=== PATIENT | female | born 1985 | race Caucasian/White ===

== ENCOUNTER 2021-09-30 09:38 | Inpatient (IN) ==
[2021-09-30] MEDS ORDERED: SODIUM CHLORIDE 0.9% 1000ML 2,000 ML IV ONE (09:52)
--- NOTE | 2021-09-30 10:14 | XRay Report ---
SINGLE VIEW CHEST CLINICAL HISTORY: Sepsis. FINDINGS: An AP, portable, upright chest radiograph is obtained. No prior studies are available for c omparison at the time of dictation. The cardiomediastinal silhouette is unremarkable. The lungs and p leural spaces are clear. No pneumothorax is seen. The bony thorax is grossly intact. IMPRESSION: No active disease in the chest. ACT 112: Negative or not required by law. Electronically signed by: Jayden Maurice M.D. 09/30/2021 10:13 AM
[2021-09-30] MEDS ORDERED: cefTRIAXone SODIUM 2,000 MG/70 ML BAG IV STA (10:19)
[2021-09-30 10:28] LABS: Basophils # (auto) 0.03 K/uL (0-0.2); Basophils % (auto) 0.2 %; Hematocrit (blood only) 35.1 % (34.1-44.9); Immature Granulocytes # (auto) 0.13 K/uL (0.00-0.02); Immature Granulocytes % (auto) 0.9 %; Lymphocytes # (auto) 0.96 K/uL (1.2-3.4); Mean Corpuscular Hemoglobin 29.3 pg (25.0-34.0); Mean Corpuscular Hgb Conc 34.2 g/dL (32.0-36.0); Mean Corpuscular Volume 85.8 fL (80.0-100.0); Mean Platelet Volume 9.1 fL (9.4-12.3); Monocytes # (auto) 0.98 K/uL (0.24-0.82); Monocytes % (auto) 7.2 %; Neutrophils % (auto) 84.7 %; Platelet Count 151 K/uL (130-400); RDW Coefficient of Variation 13.3 % (11.5-14.5); Red Blood Count 4.09 M/uL (3.93-5.22)
--- NOTE | 2021-09-30 10:46 | CT Scan Report ---
CT SCAN OF THE ABDOMEN AND PELVIS WITHOUT IV CONTRAST CLINICAL HISTORY: Fever. Left flank and left lower quadrant pain. COMPARISON STUDY: No priors. TECHNIQUE: CT scan of the abdomen and pelvis is performed from the lung bases to the proximal femora. Images are reviewed in the axial, sagittal, and coronal planes. IV contrast was not administered for this examination. Note that the examination was performed in suboptimal fashion without oral and IV contrast. A dose lowering technique was utilized adhering to the principles of ALARA. CT DOSE: 292.02 mGy.cm FINDINGS: Lung bases: The heart is normal in size and without pericardial effusion. The lung bases are clear. Liver: The unenhanced liver is normal in size, contour, and attenuation. There is no intrahepatic yaron iary ductal dilatation. Gallbladder: Unremarkable. Spleen: The spleen is enlarged measuring 14.5 cm in length. Pancreas: Unremarkable. Adrenal glands: Unremarkable. Kidneys: The unenhanced kidneys are normal in size and without hydronephrosis. There are no renal crystal culi identified. There is no evidence of contour deforming renal mass lesion. Urothelial thickening i s noted in the left renal pelvis and the left ureter. There is left-sided perinephric stranding and f luid. Results urothelial thickening of the right ureter. There is no right-sided perinephric strandin g. Abdominal vasculature: The abdominal aorta is normal in course and caliber. Bowel: The small bowel and colon are normal in course and caliber. The appendix is well-visualized a nd normal. Peritoneum: There is no intraperitoneal free air or abdominal ascites. There is a fat-containing umbi lical hernia. Lymphadenopathy: None. Pelvic viscera: The bladder is distended but otherwise normal in appearance. The uterus is normal as visualized. There are bilateral ovarian follicles. A dominant follicle in the left ovary measures up to 2.4 cm. There is a moderate volume of free fluid in the cul-de-sac. Skeletal structures: No lytic or blastic lesions are seen. IMPRESSION: 1. There is urothelial thickening involving the left renal pelvis and the left ureter with associated left-sided perinephric stranding and fluid. No renal calculi are identified. Given the history of fe rory this likely represents ascending urinary tract infection/left-sided pyelonephritis. The sequelae of a recently passed kidney stone could appear similar but is considered less likely. Correlate with clinical findings and urinalysis. 2. Urothelial thickening is also seen in the right ureter. 3. Nonspecific free fluid in the cul-de-sac is likely within physiologic limits. 4. Splenomegaly. 5. Additional findings as above. ACT 112: Negative or not required by law. Electronically signed by: Jayden Maurice M.D. 09/30/2021 10:44 AM
[2021-09-30 10:55] LABS: Albumin Globulin Ratio 1.3 (0.9-2); Albumin Level 3.8 gm/dl (3.4-5.0); BUN Creatinine Ratio 14.8 (10-20); Bilirubin,Total 1.5 mg/dl (0.2-1.0); Calcium 8.9 mg/dl (8.5-10.1); Creatinine Clr Calc Pharmacy 60.9 ml/min; Est GFR (African American) 98.7 ml/min; Est GFR (Non-African American) 85.1 ml/min; Potassium 3.5 mmol/L (3.5-5.1); Total Protein 6.8 gm/dl (6.0-8.3)
[2021-09-30 10:56] LABS: INR 1.1 (0.9-1.1); Partial Thromboplastin Ratio 1.2; Partial Thromboplastin Time 33.9 Seconds (21.0-31.0); Prothrombin Time 11.9 Seconds (9.0-12.0)
[2021-09-30 11:10] LABS: Appearance Urine Cloudy (Clear); Bacteria Urine Automated 2+ (Negative); Bilirubin Urine Negative (Negative); Blood Urine 1+ (Negative); Color Urine Yellow; Epithelial Cell Urine Auto >30 /lpf (0-5); Glucose Urine UA Negative (Negative); Ketones Urine 1+ (Negative); Leukocyte Esterase Urine 3+ (Negative); Nitrite Urine Negative (Negative); Protein Urine Trace (Negative); RBC Urine Automated 0-4 /hpf (0-4); Specific Gravity Urine 1.004 (1.000-1.030); Urobilinogen Urine Negative (Negative); WBC Urine Automated >30 /hpf (0-5)
[2021-09-30] MEDS ORDERED: KETOROLAC TROMETHAMINE 15 MG/ML VIAL IV STA (11:46)
--- NOTE | 2021-09-30 12:06 | Emergency Department Note ---
History of Present Illness General Chief Complaint: Urinary Symptoms Stated Complaint: UTI Time Seen by Provider: 09/30/21 09:52 History of Present Illness Provider Complaint: flank pain (L) Onset (ago): 5 day(s) Pain Consistency: constant Location: L flank Radiation: LLQ Severity: moderate Maximum Pain Intensity: 8 Current Pain Intensity: 8 Quality: + stabbing and + sharp Relieved By: + nothing Exacerbated By: + nothing Context: no foreign travel, no possible food poisoning, no sick contacts, no recent surgery/procedure, no recent injury or no history of similar episodes Associated Symptoms: + nausea, + vomiting, + fever, + chills and + dysuria; no diarrhea, no constipation, no melena, no anorexia, no syncope, no headache, no neck pain, no chest pain, no weakness and no breathing difficulty Patient reports that she was diagnosed with a UTI at [facility] but there was a problem with her prescription at the pharmacy and she could not start taking the antibiotic that was prescribed to her. Related Data Patient Confirmed : No Past Med/Surg History Medical History (Updated 09/30/21 @ 12:15 by Lizandro Devries) Anxiety Migraine Surgical History No pertinent past surgical history Family History (Updated 09/30/21 @ 12:11 by Kayley Villeda PA-C) Other Family history unknown Social History Smoking Status: Never smoker Feels Safe at Home: Yes Review of Systems A total of 10 systems reviewed and were otherwise negative Physical Exam Vital Signs: Vital Signs - 24 hr 09/30/21 09:46 09/30/21 10:07 09/30/21 10:07 Temperature 37.2 C Temperature Source Temporal Artery Sc an Pulse Rate 108 H Pulse Rate [Finger ] 96 H Pulse Rhythm Pulse Rhythm [Fing er] Regular Pulse Strength [Fi nger] Normal Respiratory Rate 18 20 20 Respiratory Effort / Characteristics Non-Labored Non-Labored Non-Labored Sponta neous Respiratory Depth Normal Normal Respiratory Patter n Regular Blood Pressure 92/60 L Blood Pressure [Le ft Arm] 97/59 L Blood Pressure Danette n 70 Blood Pressure Danette n [Left Arm] 71 Blood Pressure Pos ition [Left Arm] Lying Pulse Oximetry 97 100 100 Oxygen Delivery Me thod Room Air Room Air Room Air Sepsis Recent Feve r Within 48 Hours No Sepsis New/Unexpla ined Change in Men jarad Status No Sepsis Action Take n by Nursing No Action Required 09/30/21 10:07 09/30/21 10:30 09/30/21 11:00 Temperature Temperature Source Pulse Rate 90 Pulse Rate [Finger ] Pulse Rhythm Regular Pulse Rhythm [Fing er] Pulse Strength [Fi nger] Respiratory Rate 20 20 Respiratory Effort / Characteristics Non-Labored Non-Labored Respiratory Depth Respiratory Patter n Blood Pressure Blood Pressure [Le ft Arm] Blood Pressure Danette n Blood Pressure Danette n [Left Arm] Blood Pressure Pos ition [Left Arm] Pulse Oximetry 100 100 100 Oxygen Delivery Me thod Room Air Room Air Room Air Sepsis Recent Feve r Within 48 Hours Sepsis New/Unexpla ined Change in Men jarad Status Sepsis Action Take n by Nursing 09/30/21 11:00 09/30/21 11:30 Temperature Temperature Source Pulse Rate Pulse Rate [Finger ] 90 Pulse Rhythm Pulse Rhythm [Fing er] Regular Pulse Strength [Fi nger] Normal Respiratory Rate 20 20 Respiratory Effort / Characteristics Non-Labored Non-Labored Respiratory Depth Normal Respiratory Patter n Blood Pressure Blood Pressure [Le ft Arm] 94/60 L Blood Pressure Danette n Blood Pressure Danette n [Left Arm] 71 Blood Pressure Pos ition [Left Arm] Lying Pulse Oximetry 100 100 Oxygen Delivery Me thod Room Air Room Air Sepsis Recent Feve r Within 48 Hours Sepsis New/Unexpla ined Change in Men jarad Status Sepsis Action Take n by Nursing Physical Exam: Physical Exam GENERAL: She is oriented to person, place, and time. She appears well-developed and well-nourished. She does not appear distressed. HENT: Exam performed. -Head: Normocephalic and atraumatic. -Right Ear: External ear normal. No mastoid tenderness. -Left Ear: External ear normal. No mastoid tenderness. -Mouth/Throat: The oropharynx is clear and moist. No trismus in the jaw. No dental abscesses or uvula swelling. No oropharyngeal exudate or tonsillar abscesses. EYES: Conjunctivae and EOM are normal. Pupils are equal, round, and reactive to light. Right eye exhibits no discharge. Left eye exhibits no discharge. No scleral icterus. NECK: Normal range of motion. Neck supple. No JVD present. No spinous process tenderness present. No carotid bruit present. No rigidity. No tracheal deviation and normal range of motion present. No Brudzinski's sign and no Kernig's sign noted. CV: Normal rate, regular rhythm, normal heart sounds and intact distal pulses. There is no peripheral edema. Palpable radial pulses bue. PULM/CHEST: Effort normal and breath sounds normal. No respiratory distress. No stridor. She has no wheezes. She has no rales. -Chest Wall: She exhibits no tenderness. ABD: The abdomen is soft. Bowel sounds are normal. She has no distension. No mass is present. There is tenderness to palpation of the left lower quadrant. There is no rebound, no guarding, no Pruitt's sign and no tenderness at McBurney's point. Rovsig negative. Left-sided CVA tenderness present. MUSC/SKEL: Normal range of motion. There is no peripheral edema, tenderness or deformity. LYMPH: No cervical adenopathy. NEURO: She is alert and oriented to person, place, and time. She has normal strength. No cranial nerve deficit or sensory deficit. Coordination and gait normal. GCS eye subscore is 4. GCS verbal subscore is 5. GCS motor subscore is 6. Cerebellar tests wnl. SKIN: Skin is warm and dry. She is not diaphoretic. PSYCH: She has a normal mood and affect. Behavior is normal. Judgment and thought content normal. Course Course 0952: The patient was evaluated in room B10. A complete history and physical exam was performed Cardiac monitoring: An order was placed for continuous cardiac monitoring. The monitor shows a rate of 110 with sinus rhythm Patient has paperwork with her from [facility] and earlier today the patient had a temperature of 102.1 was tachycardic at 114 and had a blood pressure of 88/50 and was referred to the emergency department for these findings. The paperwork there also shows that the patient had a urine culture from September 29, 2021 which showed greater than 100,000 colonies of lactose fermenting gram-negative bacilli. Sepsis protocols will be initiated and the patient will be treated with antibiotics to cover the organism on the urine culture. 1150: Patient remains hypotensive in the emergency department. Labs show leukocytosis of 13.7. Lactic acid within normal limits. Urinalysis does appear infected. Patient CT shows pyelonephritis. Patient will be admitted to the [facility] hospitalist team Dr. Rios team notified. Administered Medications Discontinued Medications Sodium Chloride (Nss 1000ml) 2,000 mls @ 999 mls/hr IV .Q2H1M ONE Stop: 09/30/21 11:52 Last Admin: 09/30/21 10:03 Dose: 999 mls/hr Documented By: DEL Ceftriaxone Sodium (Rocephin) 2,000 mg in 70 mls @ 140 mls/hr IV NOW STA Stop: 09/30/21 10:48 Last Infusion: 09/30/21 11:33 Dose: 0 mls/hr Documented By: Admin: 09/30/21 11:02 Dose: 140 mls/hr Documented By: DEL Ketorolac Tromethamine (Ketorolac Tromethamine 15 Mg/Ml Vial) 15 mg IV NOW STA Stop: 09/30/21 11:47 Last Admin: 09/30/21 11:52 Dose: 15 mg Documented By: DEL Medical Decision Making Laboratory Data Result diagrams: 09/30/21 10:00 09/30/21 10:00 Lab Results 09/30/21 09/30/21 09/30/21 Range/Units 10:00 10:00 10:00 WBC 13.70 H (4.8-10.8) K/ul RBC 4.09 (3.93-5.22) M/uL Hgb 12.0 (12.0-16.0) g/dl Hct 35.1 (34.1-44.9) % MCV 85.8 (80.0-100.0) fL MCH 29.3 (25.0-34.0) pg MCHC 34.2 (32.0-36.0) g/dL RDW Std Deviation 42.0 (36.4-46.3) fL RDW Coeff of Alina 13.3 (11.5-14.5) % Plt Count 151 (130-400) K/uL MPV 9.1 L (9.4-12.3) fL Immature Gran % (Auto) 0.9 % Neut % (Auto) 84.7 % Lymph % (Auto) 7.0 % [place] % (Auto) 7.2 % Eos % (Auto) 0.0 % Baso % (Auto) 0.2 % Neut # (Auto) 11.60 H (1.4-6.5) K/uL Lymph # (Auto) 0.96 L (1.2-3.4) K/uL [place] # (Auto) 0.98 H (0.24-0.82) K/uL Eos # (Auto) 0.00 (0-0.50) K/uL Baso # (Auto) 0.03 (0-0.2) K/uL Immature Gran # (Auto) 0.13 H (0.00-0.02) K/uL PT 11.9 (9.0-12.0) Seconds INR 1.1 (0.9-1.1) APTT 33.9 H (21.0-31.0) Seconds PTT Ratio 1.2 Sodium 130 L (136-145) mmol/L Potassium 3.5 (3.5-5.1) mmol/L Chloride 98 (98-107) mmol/L Carbon Dioxide 22 (21-32) mmol/L Anion Gap 10 (3-11) BUN 13 (6-23) mg/dl Creatinine 0.88 (0.6-1.2) mg/dl Est Cr Clr Drug Dosing 60.9 ml/min Est GFR ( Amer) 98.7 ml/min Est GFR (Non-Af Amer) 85.1 ml/min BUN/Creatinine Ratio 14.8 (10-20) Glucose 118 H (70-99(Fasting)) mg/dl Lactate (0.4-2.0) mmol/L Calcium 8.9 (8.5-10.1) mg/dl Magnesium 2.0 (1.7-2.4) mg/dl Total Bilirubin 1.5 H (0.2-1.0) mg/dl AST 12 L (13-39) U/L ALT 14 (7-52) U/L Alkaline Phosphatase 57 (34-104) U/L Total Protein 6.8 (6.0-8.3) gm/dl Albumin 3.8 (3.4-5.0) gm/dl Globulin 3.0 (2.5-4.0) gm/dl Albumin/Globulin Ratio 1.3 (0.9-2) Urine Color Urine Appearance (Clear) Urine pH (4.5-7.5) Ur Specific Nettie (1.000-1.030) Urine Protein (Negative) Urine Glucose (UA) (Negative) Urine Ketones (Negative) Urine Blood (Negative) Urine Nitrite (Negative) Urine Bilirubin (Negative) Urine Urobilinogen (Negative) Ur Leukocyte Esterase (Negative) Urine WBC (Auto) (0-5) /hpf Urine RBC (Auto) (0-4) /hpf U Hyaline Cast (Auto) (0-5) /lpf U Epithel Cells (Auto) (0-5) /lpf Urine Bacteria (Auto) (Negative) POC Ur Test (NEG) 09/30/21 09/30/21 09/30/21 Range/Units 10:50 10:50 10:53 WBC (4.8-10.8) K/ul RBC (3.93-5.22) M/uL Hgb (12.0-16.0) g/dl Hct (34.1-44.9) % MCV (80.0-100.0) fL MCH (25.0-34.0) pg MCHC (32.0-36.0) g/dL RDW Std Deviation (36.4-46.3) fL RDW Coeff of Alina (11.5-14.5) % Plt Count (130-400) K/uL MPV (9.4-12.3) fL Immature Gran % (Auto) % Neut % (Auto) % Lymph % (Auto) % [place] % (Auto) % Eos % (Auto) % Baso % (Auto) % Neut # (Auto) (1.4-6.5) K/uL Lymph # (Auto) (1.2-3.4) K/uL [place] # (Auto) (0.24-0.82) K/uL Eos # (Auto) (0-0.50) K/uL Baso # (Auto) (0-0.2) K/uL Immature Gran # (Auto) (0.00-0.02) K/uL PT (9.0-12.0) Seconds INR (0.9-1.1) APTT (21.0-31.0) Seconds PTT Ratio Sodium (136-145) mmol/L Potassium (3.5-5.1) mmol/L Chloride (98-107) mmol/L Carbon Dioxide (21-32) mmol/L Anion Gap (3-11) BUN (6-23) mg/dl Creatinine (0.6-1.2) mg/dl Est Cr Clr Drug Dosing ml/min Est GFR ( Amer) ml/min Est GFR (Non-Af Amer) ml/min BUN/Creatinine Ratio (10-20) Glucose (70-99(Fasting)) mg/dl Lactate 1.4 (0.4-2.0) mmol/L Calcium (8.5-10.1) mg/dl Magnesium (1.7-2.4) mg/dl Total Bilirubin (0.2-1.0) mg/dl AST (13-39) U/L ALT (7-52) U/L Alkaline Phosphatase (34-104) U/L Total Protein (6.0-8.3) gm/dl Albumin (3.4-5.0) gm/dl Globulin (2.5-4.0) gm/dl Albumin/Globulin Ratio (0.9-2) Urine Color Yellow Urine Appearance Cloudy A (Clear) Urine pH 6.0 (4.5-7.5) Ur Specific Nettie 1.004 (1.000-1.030) Urine Protein Trace H (Negative) Urine Glucose (UA) Negative (Negative) Urine Ketones 1+ H (Negative) Urine Blood 1+ H (Negative) Urine Nitrite Negative (Negative) Urine Bilirubin Negative (Negative) Urine Urobilinogen Negative (Negative) Ur Leukocyte Esterase 3+ H (Negative) Urine WBC (Auto) >30 H (0-5) /hpf Urine RBC (Auto) 0-4 (0-4) /hpf U Hyaline Cast (Auto) 1-5 (0-5) /lpf U Epithel Cells (Auto) >30 H (0-5) /lpf Urine Bacteria (Auto) 2+ H (Negative) POC Ur Test NEG (NEG) Imaging Data Radiologist's Impression: Chest X-Ray 09/30/21 09:52 SINGLE VIEW CHEST CLINICAL HISTORY: Sepsis. FINDINGS: An AP, portable, upright chest radiograph is obtained. No prior studies are available for comparison at the time of dictation. The cardiomediastinal silhouette is unremarkable. The lungs and pleural spaces are clear. No pneumothorax is seen. The bony thorax is grossly intact. IMPRESSION: No active disease in the chest. ACT 112: Negative or not required by law. Electronically signed by: Jayden Maurice M.D. 09/30/2021 10:13 AM Abdomen/Pelvis CT 09/30/21 10:02 CT SCAN OF THE ABDOMEN AND PELVIS WITHOUT IV CONTRAST CLINICAL HISTORY: Fever. Left flank and left lower quadrant pain. COMPARISON STUDY: No priors. TECHNIQUE: CT scan of the abdomen and pelvis is performed from the lung bases to the proximal femora. Images are reviewed in the axial, sagittal, and coronal planes. IV contrast was not administered for this examination. Note that the examination was performed in suboptimal fashion without oral and IV contrast. A dose lowering technique was utilized adhering to the principles of ALARA. CT DOSE: 292.02 mGy.cm FINDINGS: Lung bases: The heart is normal in size and without pericardial effusion. The lung bases are clear. Liver: The unenhanced liver is normal in size, contour, and attenuation. There is no intrahepatic biliary ductal dilatation. Gallbladder: Unremarkable. Spleen: The spleen is enlarged measuring 14.5 cm in length. Pancreas: Unremarkable. Adrenal glands: Unremarkable. Kidneys: The unenhanced kidneys are normal in size and without hydronephrosis. There are no renal calculi identified. There is no evidence of contour deforming renal mass lesion. Urothelial thickening is noted in the left renal pelvis and the left ureter. There is left-sided perinephric stranding and fluid. Results urothelial thickening of the right ureter. There is no right-sided perinephric stranding. Abdominal vasculature: The abdominal aorta is normal in course and caliber. Bowel: The small bowel and colon are normal in course and caliber. The appendix is well-visualized and normal. Peritoneum: There is no intraperitoneal free air or abdominal ascites. There is a fat-containing umbilical hernia. Lymphadenopathy: None. Pelvic viscera: The bladder is distended but otherwise normal in appearance. The uterus is normal as visualized. There are bilateral ovarian follicles. A dominant follicle in the left ovary measures up to 2.4 cm. There is a moderate volume of free fluid in the cul-de-sac. Skeletal structures: No lytic or blastic lesions are seen. IMPRESSION: 1. There is urothelial thickening involving the left renal pelvis and the left ureter with associated left-sided perinephric stranding and fluid. No renal calculi are identified. Given the history of fever this likely represents ascending urinary tract infection/left-sided pyelonephritis. The sequelae of a recently passed kidney stone could appear similar but is considered less likely. Correlate with clinical findings and urinalysis. 2. Urothelial thickening is also seen in the right ureter. 3. Nonspecific free fluid in the cul-de-sac is likely within physiologic limits. 4. Splenomegaly. 5. Additional findings as above. ACT 112: Negative or not required by law. Electronically signed by: Jayden Maurice M.D. 09/30/2021 10:44 AM ECG Data Indication: other (sepsis) Rate (beats per minute): 84 Rhythm: normal sinus Findings: no ST depression, no ST elevation or no prolonged QT MDM Narrative 0952: The patient was evaluated in room B10. A complete history and physical exam was performed Cardiac monitoring: An order was placed for continuous cardiac monitoring. The monitor shows a rate of 110 with sinus rhythm Patient [facility] paperwork with her [facility] and earlier today the patient had a temperature of 102.1 was tachycardic at 114 and had a blood pressure of 88/50 and was referred to the emergency department for these findings. The paperwork there also shows that the patient had a urine culture from September 29, 2021 which showed greater than 100,000 colonies of lactose fermenting gram-negative kerwin illi. Sepsis protocols will be initiated and the patient will be treated with antibiotics to cover the organism on the urine culture. 1150: Patient remains hypotensive in the emergency department. Labs show leukocytosis of 13.7. Lactic acid within normal limits. Urinalysis does appear infected. Patient CT shows pyelonephritis. Patient [facility] be [facility] to the [facility] Hospitalist team Dr. Rios team notified. Impression & Plan Pyelonephritis Discharge Plan Visit Data Chief Complaint: Urinary Symptoms Stated Complaint: UTI ED Provider: Lizandro Devries Discharge Problem: Pyelonephritis Patient Disposition: Admitted As Inpatient Forms Stand Alone Forms: My [facility] Referrals Referrals: Addis Palumbo MD [Primary Care Provider] -
--- NOTE | 2021-09-30 12:09 | History & Physical Report ---
Date of Service September 30, 2021 Assessment & Plan (1) Pyelonephritis: Plan: Possible passed kidney stone Patient is 36-year-old female with PMH anxiety, depression, migraine presented to ER with complaint of dysuria, urinary frequency x 4 days. 3 days ago with suprapubic pain, left back and left flank pain, fever, chills. 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 Outpatient 09/28/2021 urine culture +E. coli, resistant to ampicillin, cefazolin, ceftriaxone, Cipro In ER patient afebrile, initial P: 108 down to 98, BP 94/60, 97% on room air. WBC: 13.7, lactate WNL. UA. Consistent with UTI CT ABD/PELVIS: There is urothelial thickening involving the left renal pelvis and the left ureter with associated left-sided perinephric stranding and fluid. No renal calculi are identified. Given the history of fever this likely represen ts ascending urinary tract infection/left-sided pyelonephritis. The sequelae of a recently passed kidney stone could appear similar but is considered less likely. Urothelial thickening is also seen in the right ureter. Repeat urine culture pending Blood cultures pending In ER given Rocephin, Toradol, 2L NSS We will start cefepime secondary to outpatient urine culture results showing resistant to multiple agents, was sensitive to cefepime IVF Toradol as needed CBC, BMP in a.m. (2) Hyponatremia: Plan: Na: 130 Monitor (3) Migraine: Plan: No current migraine Continue topiramate (4) Anxiety: Plan: Continue bupropion DVT Prophylaxis SCDs Full Code as per discussion with pt Follows with Dr Jere Renner for routine care Pt was seen and care coordinated with Dr Linder. See addendum History of Present Illness Chief Complaint: Urinary symptoms Primary Care Provider: Addis Palumbo MD Patient is 36-year-old female with PMH anxiety, depression, migraine presented to ER with complaint of urinary symptoms x 4 days. 09/26/21 started with dysuria, urinary frequency. Following day started with suprapubic pain, left back and left flank pain. Has decreased appetite and oral intake and nausea without vomiting. 2 days ago started with chills and fever 100.1F. Patient called into to outpatient clinic with UTI symptoms 09/27/2021 and Cipro prescription was sent however patient was unable to pick this up. Using Tylenol, Motrin with minimal relief. Outpatient records reviewed. Outpatient 09/28/2021 urine culture +E. coli, resistant to ampicillin, cefazolin, ceftriaxone, Cipro. Also complains bilateral ear pressure. Reports seasonal allergies. Denies diaphoresis, V/D/C, PHILLIP, dizziness, syncope, vision changes, CP, SOB, orthopnea, palpitations, cough, sore throat, choking, otalgia, rhinorrhea, paresthesias, weakness, extremity weakness, extremity edema, rashes, hematuria. Denies history kidney stones. Allergies Allergy/AdvReac Type Severity Reaction Status Date / Time No Known Allergies Allergy Unverified 09/30/21 12:38 Home Medications Medication Instructions Recorded Confirmed Type bupropion HCl 150 mg 24 hr tablet, 150 mg PO DAILY 09/30/21 09/30/21 History extended release norethindrone (contraceptive) 0.35 0.35 mg PO DAILY 09/30/21 09/30/21 History mg tablet sumatriptan succinate 25 mg tablet 25 mg PO Q2H PRN Migraine Headache 09/30/21 09/30/21 History topiramate 50 mg tablet 50 mg PO DAILY 09/30/21 09/30/21 History Past Med/Surg History Medical History Anxiety Migraine Surgical History No pertinent past surgical history Family History Other Family history unknown Social History Smoking Status: Never smoker Hx Alcohol Use: No Hx Substance Use: No Feels Safe at Home: Yes Review of Systems Review of Systems: All systems reviewed & are unremarkable except as noted in HPI & below Physical Exam Physical Exam: General: no acute distress, appears ill, WDWN Head: normocephalic, atraumatic Eyes: conjunctiva non-injected, anicteric ENT: normal inspection external ears, nose, mucous membranes dry Neck: supple, trachea midline Lungs: clear, no respiratory distress, no wheezing/rhonchi/rales CV: RRR, no murmur, no pretibial edema Abd: normal BS, soft, + tenderness suprapubic, left flank Ext: no cyanosis, no calf tenderness Neuro: A&O x 3, no focal deficits noted, normal affect Skin: warm, dry Results & Data Results & Data ([facility]) Vital Signs (Past 12 Hours) Vital Signs Temp Pulse Pulse Resp BP BP Pulse Ox 09/30/21 11:30 20 100 09/30/21 11:00 90 20 94/60 L 100 09/30/21 11:00 20 100 09/30/21 10:30 100 09/30/21 10:07 90 20 100 09/30/21 10:07 20 100 09/30/21 10:07 96 H 20 97/59 L 100 09/30/21 09:46 37.2 C 108 H 18 92/60 L 97 O2 Del Method 09/30/21 11:30 Room Air 09/30/21 11:00 Room Air 09/30/21 11:00 Room Air 09/30/21 10:30 Room Air 09/30/21 10:07 Room Air 09/30/21 10:07 Room Air 09/30/21 10:07 Room Air 09/30/21 09:46 Room Air Laboratory Results Short CBC 09/30/21 Range/Units 10:00 WBC 13.70 H (4.8-10.8) K/ul Hgb 12.0 (12.0-16.0) g/dl Hct 35.1 (34.1-44.9) % Plt Count 151 (130-400) K/uL BMP 09/30/21 10:00 Sodium 130 L Potassium 3.5 Chloride 98 Carbon Dioxide 22 BUN 13 Creatinine 0.88 Glucose 118 H Calcium 8.9 Liver Function 09/30/21 Range/Units 10:00 Total Bilirubin 1.5 H (0.2-1.0) mg/dl AST 12 L (13-39) U/L ALT 14 (7-52) U/L Alkaline Phosphatase 57 (34-104) U/L Albumin 3.8 (3.4-5.0) gm/dl Urine 09/30/21 Range/Units 10:50 Urine Color Yellow Urine Appearance Cloudy A (Clear) Urine pH 6.0 (4.5-7.5) Ur Specific [place] 1.004 (1.000-1.030) Urine Protein Trace H (Negative) Urine Glucose (UA) Negative (Negative) Diagnostic Findings Chest X-Ray 09/30/21 09:52 SINGLE VIEW CHEST CLINICAL HISTORY: Sepsis. FINDINGS: An AP, portable, upright chest radiograph is obtained. No prior studies are available for comparison at the time of dictation. The cardiomediastinal silhouette is unremarkable. The lungs and pleural spaces are clear. No pneumothorax is seen. The bony thorax is grossly intact. IMPRESSION: No active disease in the chest. ACT 112: Negative or not required by law. Electronically signed by: Jayden Maurice M.D. 09/30/2021 10:13 AM Abdomen/Pelvis CT 09/30/21 10:02 CT SCAN OF THE ABDOMEN AND PELVIS WITHOUT IV CONTRAST CLINICAL HISTORY: Fever. Left flank and left lower quadrant pain. COMPARISON STUDY: No priors. TECHNIQUE: CT scan of the abdomen and pelvis is performed from the lung bases to the proximal femora. Images are reviewed in the axial, sagittal, and coronal planes. IV contrast was not administered for this examination. Note that the examination was performed in suboptimal fashion without oral and IV contrast. A dose lowering technique was utilized adhering to the principles of ALARA. CT DOSE: 292.02 mGy.cm FINDINGS: Lung bases: The heart is normal in size and without pericardial effusion. The lung bases are clear. Liver: The unenhanced liver is normal in size, contour, and attenuation. There is no intrahepatic biliary ductal dilatation. Gallbladder: Unremarkable. Spleen: The spleen is enlarged measuring 14.5 cm in length. Pancreas: Unremarkable. Adrenal glands: Unremarkable. Kidneys: The unenhanced kidneys are normal in size and without hydronephrosis. There are no renal calculi identified. There is no evidence of contour deforming renal mass lesion. Urothelial thickening is noted in the left renal pelvis and the left ureter. There is left-sided perinephric stranding and fluid. Results urothelial thickening of the right ureter. There is no right-sided perinephric stranding. Abdominal vasculature: The abdominal aorta is normal in course and caliber. Bowel: The small bowel and colon are normal in course and caliber. The appendix is well-visualized and normal. Peritoneum: There is no intraperitoneal free air or abdominal ascites. There is a fat-containing umbilical hernia. Lymphadenopathy: None. Pelvic viscera: The bladder is distended but otherwise normal in appearance. The uterus is normal as visualized. There are bilateral ovarian follicles. A dominant follicle in the left ovary measures up to 2.4 cm. There is a moderate volume of free fluid in the cul-de-sac. Skeletal structures: No lytic or blastic lesions are seen. IMPRESSION: 1. There is urothelial thickening involving the left renal pelvis and the left ureter with associated left-sided perinephric stranding and fluid. No renal calculi are identified. Given the history of fever this likely represents ascending urinary tract infection/left-sided pyelonephritis. The sequelae of a recently passed kidney stone could appear similar but is considered less likely. Correlate with clinical findings and urinalysis. 2. Urothelial thickening is also seen in the right ureter. 3. Nonspecific free fluid in the cul-de-sac is likely within physiologic limits. 4. Splenomegaly. 5. Additional findings as above. ACT 112: Negative or not required by law. Electronically signed by: Jayden Maurice M.D. 09/30/2021 10:44 AM Supervising Physician Co-Signing Physician Notes Pt is a 36 y/o F with hx of Migraine admitted for Pyelonephritis with possible nephrolithiasis. PE: Mild distress, well developed HEENT: fluid behind the TMs but no erythema Cardiac: Normal S1/S2, no murmur Lungs: CTA, no wheezing or crackles Abd: ND, soft, mild TTP of the lower abd, did not perform CVA percussion MSK: no edema Psych: AAOX3, normal affect A/P: Pyelonephritis: -UCx from clinic showed E.Coli resistant to Cipro, ceftriaxone and ampicillin but sensitive to cefepime and Bactrim -started pt on cefepime - prn zofran - can consider discharging on bactrim Agree with A/P by Kayley Villeda PA-C
[2021-09-30] MEDS ORDERED: ONDANSETRON INJ 2 MG/ML 2 ML VIAL IV ONE (12:28)
[2021-09-30] MEDS ORDERED: TOPIRAMATE 50 MG TAB PO SCH (16:40)
[2021-09-30] MEDS ORDERED: ALUMINUM/MAGNESIUM SUSP 30 ML UDC PO PRN (16:40)
[2021-09-30] MEDS ORDERED: buPROPion XL 150 MG TABCR PO SCH (16:40)
[2021-09-30] MEDS ORDERED: POLYETHYLENE (MIRALAX) 17 GM PACK PO PRN (16:40)
[2021-09-30] MEDS ORDERED: FLUTICASONE PROPIONATE NA SPR 16 GM BTL NAE PRN (16:40)
[2021-09-30] MEDS: KETOROLAC TROMETHAMINE 15 MG/ML VIAL IV PRN ×2 (17:00→22:59)
[2021-09-30] MEDS: ONDANSETRON INJ 2 MG/ML 2 ML VIAL IV PRN (19:36)
[2021-09-30] MEDS: SODIUM CHLORIDE 0.9% 1000ML 1,000 ML IV SCH (20:00)
[2021-09-30] MEDS: TOPIRAMATE 50 MG TAB PO SCH (21:04)
[2021-09-30] MEDS: ACETAMINOPHEN 325 MG TAB PO PRN (21:04)
[2021-09-30] MEDS: buPROPion XL 150 MG TABCR PO SCH (21:04)
[2021-10-01] MEDS: CEFEPIME 2,000 MG in SYRINGE 0 ML IV SCH ×3 (00:53→23:13)
[2021-10-01] MEDS: SODIUM CHLORIDE 0.9% 1000ML 1,000 ML IV SCH (00:58)
[2021-10-01] MEDS: ACETAMINOPHEN 325 MG TAB PO PRN (05:12)
[2021-10-01 05:34] LABS: Basophils # (auto) 0.03 K/uL (0-0.2); Basophils % (auto) 0.5 %; Eosinophils # (auto) 0.04 K/uL (0-0.50); Eosinophils % (auto) 0.7 %; Hematocrit (blood only) 29.3 % (34.1-44.9); Hemoglobin 9.7 g/dl (12.0-16.0); Immature Granulocytes # (auto) 0.03 K/uL (0.00-0.02); Immature Granulocytes % (auto) 0.5 %; Lymphocytes # (auto) 0.88 K/uL (1.2-3.4); Lymphocytes % (auto) 14.6 %; Mean Corpuscular Hemoglobin 29.5 pg (25.0-34.0); Mean Corpuscular Hgb Conc 33.1 g/dL (32.0-36.0); Mean Corpuscular Volume 89.1 fL (80.0-100.0); Mean Platelet Volume 9.4 fL (9.4-12.3); Monocytes # (auto) 0.51 K/uL (0.24-0.82); Monocytes % (auto) 8.5 %; Neutrophils # (auto) 4.54 K/uL (1.4-6.5); Neutrophils % (auto) 75.2 %; Platelet Count 121 K/uL (130-400); RDW Coefficient of Variation 13.5 % (11.5-14.5); RDW Standard Deviation 44.3 fL (36.4-46.3); Red Blood Count 3.29 M/uL (3.93-5.22); White Blood Count 6.03 K/ul (4.8-10.8)
[2021-10-01 06:08] LABS: BUN Creatinine Ratio 16.9 (10-20); Calcium 7.8 mg/dl (8.5-10.1); Creatinine Clr Calc Pharmacy 64.5 ml/min; Est GFR (African American) 105.9 ml/min; Est GFR (Non-African American) 91.4 ml/min; Potassium 3.6 mmol/L (3.5-5.1)
[2021-10-01] MEDS: KETOROLAC TROMETHAMINE 15 MG/ML VIAL IV PRN ×3 (06:24→20:06)
--- NOTE | 2021-10-01 07:27 | Electrocardiogram Report ---
Test Reason : Blood Pressure : / mmHG Vent. Rate : 084 BPM Atrial Rate : 084 BPM P-R Int : 164 ms QRS Dur : 080 ms QT Int : 372 ms P-R-T Axes : 044 -03 015 degrees QTc Int : 439 ms Normal sinus rhythm Low voltage QRS RSR' or QR pattern in V1 suggests right ventricular conduction delay Nonspecific T wave abnormality No previous ECGs available Confirmed by Jhony Quezada ([id number]) on 10/01/2021 7:27:14 AM Referred By: REFERRED SELF Confirmed By:Jhony Quezada
[2021-10-01] MEDS: ONDANSETRON INJ 2 MG/ML 2 ML VIAL IV PRN (07:58)
--- NOTE | 2021-10-01 08:27 | Hospitalist Progress Note ---
Date of Service October 01, 2021 Assessment & Plan (1) Pyelonephritis: Plan: Possible passed kidney stone Patient is 36-year-old female with PMH anxiety, depression, migraine presented to ER with complaint of dysuria, urinary frequency x 4 days. 3 days ago with suprapubic pain, left back and left flank pain, fever, chills. 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 Outpatient 09/28/2021 urine culture +E. coli, resistant to ampicillin, cefazolin, ceftriaxone, Cipro In ER patient afebrile, initial P: 108 down to 98, BP 94/60, 97% on room air. WBC: 13.7, lactate WNL. UA. Consistent with UTI CT ABD/PELVIS: There is urothelial thickening involving the left renal pelvis and the left ureter with associated left-sided perinephric stranding and fluid. No renal calculi are identified. Given the history of fever this likely represen ts ascending urinary tract infection/left-sided pyelonephritis. The sequelae of a recently passed kidney stone could appear similar but is considered less likely. Urothelial thickening is also seen in the right ureter. Repeat urine culture positive for GNB Blood cultures pending In ER given Rocephin, Toradol, 2L NSS Started cefepime on admission secondary to outpatient urine culture results show ing resistant to multiple agents, was sensitive to cefepime IVF Toradol as needed monitor CBC, BMP (2) Hyponatremia: Plan: Na: 130 on admission Monitor, now improved (3) Migraine: Plan: No current migraine Continue home meds (4) Anxiety: Plan: Continue bupropion DVT Prophylaxis SCDs Full Code as per discussion with pt Follows with Dr Jere Renner for routine care Admission and Anticipated Discharge Date Admission Date: September 30, 2021 Subjective Pt is a 36 y/o F with hx of Migraine admitted for Pyelonephritis with possible nephrolithiasis. Currently laying in bed, continues to complain of left flank pain, left lower abdominal pain. Has some burning with urination. When asked about fevers or chills, she says she has been having night sweats for several years now. Very poor appetite. Reports she was only able to have a fruit cup today. No vomiting. No hematuria. No chest pain, shortness of breath. Review of Systems Review of Systems: All systems reviewed & are unremarkable except as noted in Subjective Physical Exam Physical Exam: General: Thin young female, laying in bed, appears ill, but in no acute distress Head: normocephalic, atraumatic Eyes: conjunctiva non-injected, anicteric ENT: normal inspection external ears, nose, mucous membranes dry Neck: supple Lungs: clear, no respiratory distress, no wheezing/rhonchi/rales CV: RRR, no murmur, no pretibial edema Abd: normal BS, soft, + tenderness suprapubic, left lower abd., left flank Ext: no calf tenderness, moves extremities Neuro: A&O x 3, no focal deficits noted, normal affect Skin: warm, dry Results & Data Results & Data ([facility]) Vital Signs (Past 12 Hours) Vital Signs Temp Pulse Resp BP Pulse Ox O2 Del Method 10/01/21 07:54 36.6 C 10/01/21 07:54 71 14 97/59 L 100 Room Air 10/01/21 05:12 75 16 100/55 L 97 Room Air Laboratory Results 10/01/21 10/01/21 09/30/21 Range/Units 05:01 05:01 11:50 WBC 6.03 (4.8-10.8) K/ul RBC 3.29 L (3.93-5.22) M/uL Hgb 9.7 L (12.0-16.0) g/dl Hct 29.3 L (34.1-44.9) % MCV 89.1 (80.0-100.0) fL MCH 29.5 (25.0-34.0) pg MCHC 33.1 (32.0-36.0) g/dL RDW Std Deviation 44.3 (36.4-46.3) fL RDW Coeff of Alina 13.5 (11.5-14.5) % Plt Count 121 L (130-400) K/uL MPV 9.4 (9.4-12.3) fL Immature Gran % (Auto) 0.5 % Neut % (Auto) 75.2 % Lymph % (Auto) 14.6 % [place] % (Auto) 8.5 % Eos % (Auto) 0.7 % Baso % (Auto) 0.5 % Neut # (Auto) 4.54 (1.4-6.5) K/uL Lymph # (Auto) 0.88 L (1.2-3.4) K/uL [place] # (Auto) 0.51 (0.24-0.82) K/uL Eos # (Auto) 0.04 (0-0.50) K/uL Baso # (Auto) 0.03 (0-0.2) K/uL Immature Gran # (Auto) 0.03 H (0.00-0.02) K/uL PT (9.0-12.0) Seconds INR (0.9-1.1) APTT (21.0-31.0) Seconds PTT Ratio Sodium 135 L (136-145) mmol/L Potassium 3.6 (3.5-5.1) mmol/L Chloride 108 H (98-107) mmol/L Carbon Dioxide 22 (21-32) mmol/L Anion Gap 5 (3-11) BUN 14 (6-23) mg/dl Creatinine 0.83 (0.6-1.2) mg/dl Est Cr Clr Drug Dosing 64.5 ml/min Est GFR ( Amer) 105.9 ml/min Est GFR (Non-Af Amer) 91.4 ml/min BUN/Creatinine Ratio 16.9 (10-20) Glucose 93 (70-99(Fasting)) mg/dl Lactate (0.4-2.0) mmol/L Calcium 7.8 L (8.5-10.1) mg/dl Magnesium (1.7-2.4) mg/dl Total Bilirubin (0.2-1.0) mg/dl AST (13-39) U/L ALT (7-52) U/L Alkaline Phosphatase (34-104) U/L Total Protein (6.0-8.3) gm/dl Albumin (3.4-5.0) gm/dl Globulin (2.5-4.0) gm/dl Albumin/Globulin Ratio (0.9-2) Urine Color Urine Appearance (Clear) Urine pH (4.5-7.5) Ur Specific [place] (1.000-1.030) Urine Protein (Negative) Urine Glucose (UA) (Negative) Urine Ketones (Negative) Urine Blood (Negative) Urine Nitrite (Negative) Urine Bilirubin (Negative) Urine Urobilinogen (Negative) Ur Leukocyte Esterase (Negative) Urine WBC (Auto) (0-5) /hpf Urine RBC (Auto) (0-4) /hpf U Hyaline Cast (Auto) (0-5) /lpf U Epithel Cells (Auto) (0-5) /lpf Urine Bacteria (Auto) (Negative) POC Ur Test (NEG) SARS-CoV-2, RNA, NAAT NEGATIVE (NEGATIVE) 09/30/21 09/30/21 09/30/21 Range/Units 10:53 10:50 10:50 WBC (4.8-10.8) K/ul RBC (3.93-5.22) M/uL Hgb (12.0-16.0) g/dl Hct (34.1-44.9) % MCV (80.0-100.0) fL MCH (25.0-34.0) pg MCHC (32.0-36.0) g/dL RDW Std Deviation (36.4-46.3) fL RDW Coeff of Alina (11.5-14.5) % Plt Count (130-400) K/uL MPV (9.4-12.3) fL Immature Gran % (Auto) % Neut % (Auto) % Lymph % (Auto) % [place] % (Auto) % Eos % (Auto) % Baso % (Auto) % Neut # (Auto) (1.4-6.5) K/uL Lymph # (Auto) (1.2-3.4) K/uL [place] # (Auto) (0.24-0.82) K/uL Eos # (Auto) (0-0.50) K/uL Baso # (Auto) (0-0.2) K/uL Immature Gran # (Auto) (0.00-0.02) K/uL PT (9.0-12.0) Seconds INR (0.9-1.1) APTT (21.0-31.0) Seconds PTT Ratio Sodium (136-145) mmol/L Potassium (3.5-5.1) mmol/L Chloride (98-107) mmol/L Carbon Dioxide (21-32) mmol/L Anion Gap (3-11) BUN (6-23) mg/dl Creatinine (0.6-1.2) mg/dl Est Cr Clr Drug Dosing ml/min Est GFR ( Amer) ml/min Est GFR (Non-Af Amer) ml/min BUN/Creatinine Ratio (10-20) Glucose (70-99(Fasting)) mg/dl Lactate 1.4 (0.4-2.0) mmol/L Calcium (8.5-10.1) mg/dl Magnesium (1.7-2.4) mg/dl Total Bilirubin (0.2-1.0) mg/dl AST (13-39) U/L ALT (7-52) U/L Alkaline Phosphatase (34-104) U/L Total Protein (6.0-8.3) gm/dl Albumin (3.4-5.0) gm/dl Globulin (2.5-4.0) gm/dl Albumin/Globulin Ratio (0.9-2) Urine Color Yellow Urine Appearance Cloudy A (Clear) Urine pH 6.0 (4.5-7.5) Ur Specific [place] 1.004 (1.000-1.030) Urine Protein Trace H (Negative) Urine Glucose (UA) Negative (Negative) Urine Ketones 1+ H (Negative) Urine Blood 1+ H (Negative) Urine Nitrite Negative (Negative) Urine Bilirubin Negative (Negative) Urine Urobilinogen Negative (Negative) Ur Leukocyte Esterase 3+ H (Negative) Urine WBC (Auto) >30 H (0-5) /hpf Urine RBC (Auto) 0-4 (0-4) /hpf U Hyaline Cast (Auto) 1-5 (0-5) /lpf U Epithel Cells (Auto) >30 H (0-5) /lpf Urine Bacteria (Auto) 2+ H (Negative) POC Ur Test NEG (NEG) SARS-CoV-2, RNA, NAAT (NEGATIVE) 09/30/21 09/30/21 09/30/21 Range/Units 10:00 10:00 10:00 WBC 13.70 H (4.8-10.8) K/ul RBC 4.09 (3.93-5.22) M/uL Hgb 12.0 (12.0-16.0) g/dl Hct 35.1 (34.1-44.9) % MCV 85.8 (80.0-100.0) fL MCH 29.3 (25.0-34.0) pg MCHC 34.2 (32.0-36.0) g/dL RDW Std Deviation 42.0 (36.4-46.3) fL RDW Coeff of Alina 13.3 (11.5-14.5) % Plt Count 151 (130-400) K/uL MPV 9.1 L (9.4-12.3) fL Immature Gran % (Auto) 0.9 % Neut % (Auto) 84.7 % Lymph % (Auto) 7.0 % [place] % (Auto) 7.2 % Eos % (Auto) 0.0 % Baso % (Auto) 0.2 % Neut # (Auto) 11.60 H (1.4-6.5) K/uL Lymph # (Auto) 0.96 L (1.2-3.4) K/uL [place] # (Auto) 0.98 H (0.24-0.82) K/uL Eos # (Auto) 0.00 (0-0.50) K/uL Baso # (Auto) 0.03 (0-0.2) K/uL Immature Gran # (Auto) 0.13 H (0.00-0.02) K/uL PT 11.9 (9.0-12.0) Seconds INR 1.1 (0.9-1.1) APTT 33.9 H (21.0-31.0) Seconds PTT Ratio 1.2 Sodium 130 L (136-145) mmol/L Potassium 3.5 (3.5-5.1) mmol/L Chloride 98 (98-107) mmol/L Carbon Dioxide 22 (21-32) mmol/L Anion Gap 10 (3-11) BUN 13 (6-23) mg/dl Creatinine 0.88 (0.6-1.2) mg/dl Est Cr Clr Drug Dosing 60.9 ml/min Est GFR ( Amer) 98.7 ml/min Est GFR (Non-Af Amer) 85.1 ml/min BUN/Creatinine Ratio 14.8 (10-20) Glucose 118 H (70-99(Fasting)) mg/dl Lactate (0.4-2.0) mmol/L Calcium 8.9 (8.5-10.1) mg/dl Magnesium 2.0 (1.7-2.4) mg/dl Total Bilirubin 1.5 H (0.2-1.0) mg/dl AST 12 L (13-39) U/L ALT 14 (7-52) U/L Alkaline Phosphatase 57 (34-104) U/L Total Protein 6.8 (6.0-8.3) gm/dl Albumin 3.8 (3.4-5.0) gm/dl Globulin 3.0 (2.5-4.0) gm/dl Albumin/Globulin Ratio 1.3 (0.9-2) Urine Color Urine Appearance (Clear) Urine pH (4.5-7.5) Ur Specific [place] (1.000-1.030) Urine Protein (Negative) Urine Glucose (UA) (Negative) Urine Ketones (Negative) Urine Blood (Negative) Urine Nitrite (Negative) Urine Bilirubin (Negative) Urine Urobilinogen (Negative) Ur Leukocyte Esterase (Negative) Urine WBC (Auto) (0-5) /hpf Urine RBC (Auto) (0-4) /hpf U Hyaline Cast (Auto) (0-5) /lpf U Epithel Cells (Auto) (0-5) /lpf Urine Bacteria (Auto) (Negative) POC Ur Test (NEG) SARS-CoV-2, RNA, NAAT (NEGATIVE) Medications Administered Current Inpatient Medications Acetaminophen (Acetaminophen 325 Mg Tab) 650 mg PO Q4H PRN PRN Reason: Pain or Fever Stop: 10/30/21 16:39 Last Admin: 10/01/21 05:12 Dose: 650 mg Al Hydrox/Mg Hydrox/Simethicone (Aluminum/Magnesium Susp 30 Ml Udc) 15 ml PO Q4H PRN PRN Reason: Dyspepsia Stop: 10/30/21 16:39 Bupropion HCl (Bupropion Xl 150 Mg Tabcr) 150 mg PO HS DOUG Stop: 10/30/21 20:59 Last Admin: 09/30/21 21:04 Dose: 150 mg Fluticasone Propionate (Fluticasone Propionate Na Spr 16 Gm Btl) 2 sprays BLUE DAILY PRN PRN Reason: Congestion Stop: 10/30/21 16:39 Sodium Chloride (Nss 1000ml) 1,000 mls @ 125 mls/hr IV .Q8H DOUG Stop: 10/01/21 08:39 Last Admin: 10/01/21 00:58 Dose: 125 mls/hr Cefepime HCl 2,000 mg/ Syringe 20 mls @ 5 mls/min IV Q12H [facility]; Protocol Stop: 10/09/21 23:03 Last Admin: 10/01/21 00:53 Dose: 5 mls/min Ketorolac Tromethamine (Ketorolac Tromethamine 15 Mg/Ml Vial) 15 mg IV Q6H PRN PRN Reason: Pain Stop: 10/02/21 16:39 Last Admin: 10/01/21 06:24 Dose: 15 mg Miscellaneous (Norethindrone (Contraceptive) 0.35 Mg -- Order Awaiting Action) 1 each N/A QS [facility] Stop: 10/31/21 00:00 Last Admin: 10/01/21 00:59 Dose: Not Given Ondansetron HCl (Ondansetron Inj 2 Mg/Ml 2 Ml Vial) 4 mg IV Q6H PRN PRN Reason: Nausea Stop: 10/30/21 16:39 Last Admin: 10/01/21 07:58 Dose: 4 mg Polyethylene Glycol (Polyethylene (Miralax) 17 Gm Pack) 17 gm PO DAILY PRN PRN Reason: Constipation Stop: 10/30/21 16:39 Sumatriptan Succinate (Sumatriptan Succinate 25 Mg Tab) 25 mg PO Q2H PRN PRN Reason: Migraine Headache Stop: 10/31/21 08:19 Topiramate (Topiramate 50 Mg Tab) 50 mg PO HS [facility] Stop: 10/30/21 20:59 Last Admin: 09/30/21 21:04 Dose: 50 mg
[2021-10-01] MEDS: SUMAtriptan succinate 25 MG TAB PO PRN (09:31)
[2021-10-01] MEDS: NORMOSOL-R 1,000 ML IV SCH (18:44)
[2021-10-01] MEDS: buPROPion XL 150 MG TABCR PO SCH (20:05)
[2021-10-01] MEDS: TOPIRAMATE 50 MG TAB PO SCH (20:06)
[2021-10-02] MEDS: SUMAtriptan succinate 25 MG TAB PO PRN (03:24)
[2021-10-02] MEDS: NORMOSOL-R 1,000 ML IV SCH ×2 (06:20→20:52)
[2021-10-02 09:57] LABS: Hematocrit (blood only) 29.4 % (34.1-44.9); Hemoglobin 9.7 g/dl (12.0-16.0); Mean Platelet Volume 9.3 fL (9.4-12.3); Platelet Count 128 K/uL (130-400)
[2021-10-02 10:22] LABS: BUN Creatinine Ratio 11.3 (10-20); Calcium 8.1 mg/dl (8.5-10.1); Creatinine Clr Calc Pharmacy 73.4 ml/min; Est GFR (African American) 110.7 ml/min; Est GFR (Non-African American) 95.5 ml/min; Magnesium 2.1 mg/dl (1.7-2.4); Phosphorus 3.1 mg/dl (2.5-4.9); Potassium 4.1 mmol/L (3.5-5.1)
[2021-10-02 10:37] LABS: Mean Corpuscular Hemoglobin 29.3 pg (25.0-34.0); Mean Corpuscular Volume 88.8 fL (80.0-100.0); RDW Coefficient of Variation 13.2 % (11.5-14.5); RDW Standard Deviation 43.5 fL (36.4-46.3); Red Blood Count 3.31 M/uL (3.93-5.22)
--- NOTE | 2021-10-02 11:41 | Hospitalist Progress Note ---
Date of Service October 02, 2021 Assessment & Plan (1) Pyelonephritis: Plan: Possible passed kidney stone Patient is 36-year-old female with PMH anxiety, depression, migraine presented to ER with complaint of dysuria, urinary frequency x 4 days. 3 days ago with suprapubic pain, left back and left flank pain, fever, chills. 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 Outpatient 09/28/2021 urine culture +E. coli, resistant to ampicillin, cefazolin, ceftriaxone, Cipro In ER patient afebrile, initial P: 108 down to 98, BP 94/60, 97% on room air. WBC: 13.7, lactate WNL. UA. Consistent with UTI CT ABD/PELVIS: There is urothelial thickening involving the left renal pelvis and the left ureter with associated left-sided perinephric stranding and fluid. No renal calculi are identified. Given the history of fever this likely represen ts ascending urinary tract infection/left-sided pyelonephritis. The sequelae of a recently passed kidney stone could appear similar but is considered less likely. Urothelial thickening is also seen in the right ureter. Repeat urine culture positive for E. coli Resistant to ampicillin, ceftriaxone, intermediate for Cipro. Sensitive to cefepime, Bactrim. Blood cultures NGTD In ER given Rocephin, Toradol, 2L NSS Started cefepime on admission secondary to outpatient urine culture results showing resistant to multiple agents, was sensitive to cefepime IVF Toradol as needed monitor CBC, BMP Continue cefepime (2) Hyponatremia: Plan: Na: 130 on admission Monitor, now improved Na 136 (3) Migraine: Plan: No current migraine Continue home meds (4) Anxiety: Plan: Continue bupropion DVT Prophylaxis SCDs Full Code as per discussion with pt Follows with Dr Jere Renner for routine care Admission and Anticipated Discharge Date Admission Date: September 30, 2021 Subjective Pt is a 36 y/o F with hx of Migraine admitted for Pyelonephritis with possible nephrolithiasis. Currently laying in bed, continues to complain of left flank pain, left lower abdominal pain - but pain improved from yesterday. Has some burning with urination. When asked about fevers or chills, she says she has been having night sweats for several years now. Very poor appetite. Reports she was only able to have a fruit cup today and yesterday. No vomiting. No hematuria. No chest pain, shortness of breath. Boyfriend at the bedside. Review of Systems Review of Systems: All systems reviewed & are unremarkable except as noted in Subjective Physical Exam Physical Exam: General: Thin young female, laying in bed, appears ill, but in no acute distress Head: normocephalic, atraumatic Eyes: conjunctiva non-injected, anicteric ENT: normal inspection external ears, nose, mucous membranes dry Neck: supple Lungs: clear, no respiratory distress, no wheezing/rhonchi/rales CV: RRR, no murmur, no pretibial edema Abd: normal BS, soft, + tenderness suprapubic, left lower abd., left flank - but improved Ext: no calf tenderness, moves extremities Neuro: A&O x 3, no focal deficits noted, normal affect Skin: warm, dry Results & Data Results & Data ([facility]) Vital Signs (Past 12 Hours) Vital Signs Temp Pulse Resp BP Pulse Ox 10/02/21 07:50 37.1 C 72 16 109/73 100 Laboratory Results 10/02/21 10/02/21 Range/Units 09:40 09:40 WBC 4.60 L (4.8-10.8) K/ul RBC 3.31 L (3.93-5.22) M/uL Hgb 9.7 L (12.0-16.0) g/dl Hct 29.4 L (34.1-44.9) % MCV 88.8 (80.0-100.0) fL MCH 29.3 (25.0-34.0) pg MCHC 33.0 (32.0-36.0) g/dL RDW Std Deviation 43.5 (36.4-46.3) fL RDW Coeff of Alina 13.2 (11.5-14.5) % Plt Count 128 L (130-400) K/uL MPV 9.3 L (9.4-12.3) fL Sodium 136 (136-145) mmol/L Potassium 4.1 (3.5-5.1) mmol/L Chloride 107 (98-107) mmol/L Carbon Dioxide 22 (21-32) mmol/L Anion Gap 7 (3-11) BUN 9 (6-23) mg/dl Creatinine 0.80 (0.6-1.2) mg/dl Est Cr Clr Drug Dosing 73.4 ml/min Est GFR ( Amer) 110.7 ml/min Est GFR (Non-Af Amer) 95.5 ml/min BUN/Creatinine Ratio 11.3 (10-20) Glucose 100 H (70-99(Fasting)) mg/dl Calcium 8.1 L (8.5-10.1) mg/dl Phosphorus 3.1 (2.5-4.9) mg/dl Magnesium 2.1 (1.7-2.4) mg/dl Medications Administered Current Inpatient Medications Acetaminophen (Acetaminophen 325 Mg Tab) 650 mg PO Q4H PRN PRN Reason: Pain or Fever Stop: 10/30/21 16:39 Last Admin: 10/01/21 05:12 Dose: 650 mg Al Hydrox/Mg Hydrox/Simethicone (Aluminum/Magnesium Susp 30 Ml Udc) 15 ml PO Q4H PRN PRN Reason: Dyspepsia Stop: 10/30/21 16:39 Bupropion HCl (Bupropion Xl 150 Mg Tabcr) 150 mg PO HS DOUG Stop: 10/30/21 20:59 Last Admin: 10/01/21 20:05 Dose: 150 mg Fluticasone Propionate (Fluticasone Propionate Na Spr 16 Gm Btl) 2 sprays BLUE DAILY PRN PRN Reason: Congestion Stop: 10/30/21 16:39 Cefepime HCl 2,000 mg/ Syringe 20 mls @ 5 mls/min IV Q12H DOUG; Protocol Stop: 10/09/21 23:03 Last Admin: 10/01/21 23:13 Dose: 5 mls/min Parenteral Electrolytes (Normosol-R) 1,000 mls @ 80 mls/hr IV .[id number] DOUG Stop: 10/31/21 18:44 Last Admin: 10/02/21 06:20 Dose: 80 mls/hr Ketorolac Tromethamine (Ketorolac Tromethamine 15 Mg/Ml Vial) 15 mg IV Q6H PRN PRN Reason: Pain Stop: 10/02/21 16:39 Last Admin: 10/01/21 20:06 Dose: 15 mg Miscellaneous (Norethindrone (Contraceptive) 0.35 Mg -- Order Awaiting Action) 1 each N/A QS DOUG Stop: 10/31/21 00:00 Last Admin: 10/02/21 10:03 Dose: Not Given Ondansetron HCl (Ondansetron Inj 2 Mg/Ml 2 Ml Vial) 4 mg IV Q6H PRN PRN Reason: Nausea Stop: 10/30/21 16:39 Last Admin: 10/01/21 07:58 Dose: 4 mg Polyethylene Glycol (Polyethylene (Miralax) 17 Gm Pack) 17 gm PO DAILY PRN PRN Reason: Constipation Stop: 10/30/21 16:39 Last Admin: 10/01/21 20:06 Dose: 17 gm Sumatriptan Succinate (Sumatriptan Succinate 25 Mg Tab) 25 mg PO Q2H PRN PRN Reason: Migraine Headache Stop: 10/31/21 08:19 Last Admin: 10/02/21 03:24 Dose: 25 mg Topiramate (Topiramate 50 Mg Tab) 50 mg PO HS DOUG Stop: 10/30/21 20:59 Last Admin: 10/01/21 20:06 Dose: 50 mg
[2021-10-02] MEDS: CEFEPIME 2,000 MG in SYRINGE 0 ML IV SCH ×2 (12:07→23:42)
[2021-10-02] MEDS: buPROPion XL 150 MG TABCR PO SCH (20:10)
[2021-10-02] MEDS: TOPIRAMATE 50 MG TAB PO SCH (20:10)
--- NOTE | 2021-10-03 08:06 | Hospitalist Progress Note ---
Date of Service October 03, 2021 Assessment & Plan (1) Pyelonephritis: Plan: Possible passed kidney stone Patient is 36-year-old female with PMH anxiety, depression, migraine presented to ER with complaint of dysuria, urinary frequency x 4 days. 3 days ago with suprapubic pain, left back and left flank pain, fever, chills. 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 Outpatient 09/28/2021 urine culture +E. coli, resistant to ampicillin, cefazolin, ceftriaxone, Cipro In ER patient afebrile, initial P: 108 down to 98, BP 94/60, 97% on room air. WBC: 13.7, lactate WNL. UA. Consistent with UTI CT ABD/PELVIS: There is urothelial thickening involving the left renal pelvis and the left ureter with associated left-sided perinephric stranding and fluid. No renal calculi are identified. Given the history of fever this likely represen ts ascending urinary tract infection/left-sided pyelonephritis. The sequelae of a recently passed kidney stone could appear similar but is considered less likely. Urothelial thickening is also seen in the right ureter. Repeat urine culture positive for E. coli Resistant to ampicillin, ceftriaxone, intermediate for Cipro. Sensitive to cefepime, Bactrim. Blood cultures NGTD In ER given Rocephin, Toradol, 2L NSS Started cefepime on admission secondary to outpatient urine culture results showing resistant to multiple agents, was sensitive to cefepime IVF Toradol as needed monitor CBC, BMP Continue cefepime while inpt DC on Bactrim for total of 14 days of Abx treatment (2) Hyponatremia: Plan: Na: 130 on admission Monitor, now improved Na 138 (3) Migraine: Plan: No current migraine Continue home meds (4) Anxiety: Plan: Continue bupropion Anemia Hgb 9.9 -appears chronic -pt reports she is supposed to be on oral iron but she gets nausea from it -counselled on "gentle iron" supplement and foods rich in iron -no bleeding at this time - follow up w/ PCP DVT Prophylaxis SCDs Full Code as per discussion with pt Follows with Dr Jere Renner for routine care Admission and Anticipated Discharge Date Admission Date: October 02, 2021 Subjective Pt is a 36 y/o F with hx of Migraine admitted for Pyelonephritis with possible nephrolithiasis. Currently laying in bed in NAD She is feeling much better, denies any more of left flank pain or abdominal pain. Denies any dysuria or hematuria. Reports improved p.o. intake. No chest pain, shortness of breath. She would like to go home, as her children are starting school soon. Review of Systems Review of Systems: All systems reviewed & are unremarkable except as noted in Subjective Physical Exam Physical Exam: General: Thin young female, laying in bed, appears ill, but in no acute distress Head: normocephalic, atraumatic Eyes: conjunctiva non-injected, anicteric ENT: normal inspection external ears, nose, mucous membranes dry Neck: supple Lungs: clear, no respiratory distress, no wheezing/rhonchi/rales CV: RRR, no murmur, no pretibial edema Abd: normal BS, soft, no tenderness to palpation - resolved Ext: no calf tenderness, moves extremities Neuro: A&O x 3, no focal deficits noted, normal affect Skin: warm, dry Results & Data Results & Data ([facility]) Vital Signs (Past 12 Hours) Vital Signs Temp Pulse Resp BP Pulse Ox O2 Del Method 10/02/21 22:17 36.8 C 81 16 106/70 100 Room Air Laboratory Results 10/03/21 10/03/21 10/02/21 Range/Units 07:48 07:48 09:40 WBC 3.94 L (4.8-10.8) K/ul RBC 3.43 L 3.31 L (3.93-5.22) M/uL Hgb 9.9 L (12.0-16.0) g/dl Hct 30.4 L (34.1-44.9) % MCV 88.6 88.8 (80.0-100.0) fL MCH 28.9 29.3 (25.0-34.0) pg MCHC 32.6 33.0 (32.0-36.0) g/dL RDW Std Deviation 43.2 43.5 (36.4-46.3) fL RDW Coeff of Alina 13.2 13.2 (11.5-14.5) % Plt Count 148 (130-400) K/uL MPV 9.4 (9.4-12.3) fL Sodium 138 (136-145) mmol/L Potassium 3.8 (3.5-5.1) mmol/L Chloride 109 H (98-107) mmol/L Carbon Dioxide 21 (21-32) mmol/L Anion Gap 8 (3-11) BUN 7 (6-23) mg/dl Creatinine 0.75 (0.6-1.2) mg/dl Est Cr Clr Drug Dosing 71.4 ml/min Est GFR ( Amer) 119.7 ml/min Est GFR (Non-Af Amer) 103.3 ml/min BUN/Creatinine Ratio 9.3 L (10-20) Glucose 97 (70-99(Fasting)) mg/dl Calcium 8.3 L (8.5-10.1) mg/dl Phosphorus 3.8 (2.5-4.9) mg/dl Magnesium 2.2 (1.7-2.4) mg/dl Medications Administered Current Inpatient Medications Acetaminophen (Acetaminophen 325 Mg Tab) 650 mg PO Q4H PRN PRN Reason: Pain or Fever Stop: 10/30/21 16:39 Last Admin: 10/01/21 05:12 Dose: 650 mg Al Hydrox/Mg Hydrox/Simethicone (Aluminum/Magnesium Susp 30 Ml Udc) 15 ml PO Q4H PRN PRN Reason: Dyspepsia Stop: 10/30/21 16:39 Bupropion HCl (Bupropion Xl 150 Mg Tabcr) 150 mg PO HS [facility] Stop: 10/30/21 20:59 Last Admin: 10/02/21 20:10 Dose: 150 mg Fluticasone Propionate (Fluticasone Propionate Na Spr 16 Gm Btl) 2 sprays BLUE DAILY PRN PRN Reason: Congestion Stop: 10/30/21 16:39 Cefepime HCl 2,000 mg/ Syringe 20 mls @ 5 mls/min IV Q12H [facility]; Protocol Stop: 10/09/21 23:03 Last Admin: 10/02/21 23:42 Dose: 5 mls/min Parenteral Electrolytes (Normosol-R) 1,000 mls @ 60 mls/hr IV .[id number] [facility] Stop: 10/31/21 18:44 Last Admin: 10/02/21 20:52 Dose: 60 mls/hr Miscellaneous (Norethindrone (Contraceptive) 0.35 Mg -- Order Awaiting Action) 1 each N/A QS [facility] Stop: 10/31/21 00:00 Last Admin: 10/03/21 07:10 Dose: Not Given Ondansetron HCl (Ondansetron Inj 2 Mg/Ml 2 Ml Vial) 4 mg IV Q6H PRN PRN Reason: Nausea Stop: 10/30/21 16:39 Last Admin: 10/01/21 07:58 Dose: 4 mg Polyethylene Glycol (Polyethylene (Miralax) 17 Gm Pack) 17 gm PO DAILY PRN PRN Reason: Constipation Stop: 10/30/21 16:39 Last Admin: 10/01/21 20:06 Dose: 17 gm Sumatriptan Succinate (Sumatriptan Succinate 25 Mg Tab) 25 mg PO Q2H PRN PRN Reason: Migraine Headache Stop: 10/31/21 08:19 Last Admin: 10/02/21 03:24 Dose: 25 mg Topiramate (Topiramate 50 Mg Tab) 50 mg PO HS DOUG Stop: 10/30/21 20:59 Last Admin: 10/02/21 20:10 Dose: 50 mg
[2021-10-03 08:27] LABS: Hematocrit (blood only) 30.4 % (34.1-44.9); Hemoglobin 9.9 g/dl (12.0-16.0); Mean Corpuscular Hemoglobin 28.9 pg (25.0-34.0); Mean Corpuscular Hgb Conc 32.6 g/dL (32.0-36.0); Mean Corpuscular Volume 88.6 fL (80.0-100.0); Mean Platelet Volume 9.4 fL (9.4-12.3); Platelet Count 148 K/uL (130-400); RDW Coefficient of Variation 13.2 % (11.5-14.5); RDW Standard Deviation 43.2 fL (36.4-46.3); Red Blood Count 3.43 M/uL (3.93-5.22); White Blood Count 3.94 K/ul (4.8-10.8)
[2021-10-03 08:51] LABS: BUN Creatinine Ratio 9.3 (10-20); Calcium 8.3 mg/dl (8.5-10.1); Creatinine Clr Calc Pharmacy 71.4 ml/min; Est GFR (African American) 119.7 ml/min; Est GFR (Non-African American) 103.3 ml/min; Magnesium 2.2 mg/dl (1.7-2.4); Phosphorus 3.8 mg/dl (2.5-4.9); Potassium 3.8 mmol/L (3.5-5.1)
[2021-10-03] MEDS: CEFEPIME 2,000 MG in SYRINGE 0 ML IV SCH (10:59)
--- NOTE | 2021-10-03 12:48 | Discharge Summary ---
Date of Service October 03, 2021 Admission HPI Per Admitting Provider Patient is 36-year-old female with PMH anxiety, depression, migraine presented to ER with complaint of urinary symptoms x 4 days. 09/26/21 started with dysuria, urinary frequency. Following day started with suprapubic pain, left back and left flank pain. Has decreased appetite and oral intake and nausea without vomiting. 2 days ago started with chills and fever 100.1F. Patient called into to outpatient clinic with UTI symptoms 09/27/2021 and Cipro prescription was sent however patient was unable to pick this up. Using Tylenol, Motrin with minimal relief. Outpatient records reviewed. Outpatient 09/28/2021 urine culture +E. coli, resistant to ampicillin, cefazolin, ceftriaxone, Cipro. Also complains bilateral ear pressure. Reports seasonal allergies. Denies diaphoresis, V/D/C, PHILLIP, dizziness, syncope, vision changes, CP, SOB, orthopnea, palpitations, cough, sore throat, choking, otalgia, rhinorrhea, paresthesias, weakness, extremity weakness, extremity edema, rashes, hematuria. Denies history kidney stones. Admission Exam Per Admitting Provider General: no acute distress, appears ill, WDWN Head: normocephalic, atraumatic Eyes: conjunctiva non-injected, anicteric ENT: normal inspection external ears, nose, mucous membranes dry Neck: supple, trachea midline Lungs: clear, no respiratory distress, no wheezing/rhonchi/rales CV: RRR, no murmur, no pretibial edema Abd: normal BS, soft, + tenderness suprapubic, left flank Ext: no cyanosis, no calf tenderness Neuro: A&O x 3, no focal deficits noted, normal affect Skin: warm, dry Principal Diagnosis Pyelonephritis Discharge Exam General: Thin young female, laying in bed, appears ill, but in no acute distress Head: normocephalic, atraumatic Eyes: conjunctiva non-injected, anicteric ENT: normal inspection external ears, nose, mucous membranes dry Neck: supple Lungs: clear, no respiratory distress, no wheezing/rhonchi/rales CV: RRR, no murmur, no pretibial edema Abd: normal BS, soft, no tenderness to palpation - resolved Ext: no calf tenderness, moves extremities Neuro: A&O x 3, no focal deficits noted, normal affect Skin: warm, dry Discharge Data Allergies Allergy/AdvReac Type Severity Reaction Status Date / Time No Known Allergies Allergy Unverified 09/30/21 12:38 Consultations 09/30/21 11:47 ED Decision to Admit Stat Ordered Studies 09/30/21 10:02 CT abd pelvis wo con Stat FINDINGS: Lung bases: The heart is normal in size and without pericardial effusion. The lung bases are clear. Liver: The unenhanced liver is normal in size, contour, and attenuation. There is no intrahepatic biliary ductal dilatation. Gallbladder: Unremarkable. Spleen: The spleen is enlarged measuring 14.5 cm in length. Pancreas: Unremarkable. Adrenal glands: Unremarkable. Kidneys: The unenhanced kidneys are normal in size and without hydronephrosis. There are no renal calculi identified. There is no evidence of contour deforming renal mass lesion. Urothelial thickening is noted in the left renal pelvis and the left ureter. There is left-sided perinephric stranding and fluid. Results urothelial thickening of the right ureter. There is no right-sided perinephric stranding. Abdominal vasculature: The abdominal aorta is normal in course and caliber. Bowel: The small bowel and colon are normal in course and caliber. The appendix is well-visualized and normal. Peritoneum: There is no intraperitoneal free air or abdominal ascites. There is a fat-containing umbilical hernia. Lymphadenopathy: None. Pelvic viscera: The bladder is distended but otherwise normal in appearance. The uterus is normal as visualized. There are bilateral ovarian follicles. A dominant follicle in the left ovary measures up to 2.4 cm. There is a moderate volume of free fluid in the cul-de-sac. Skeletal structures: No lytic or blastic lesions are seen. IMPRESSION: 1. There is urothelial thickening involving the left renal pelvis and the left ureter with associated left-sided perinephric stranding and fluid. No renal calculi are identified. Given the history of fever this likely represents ascending urinary tract infection/left-sided pyelonephritis. The sequelae of a recently passed kidney stone could appear similar but is considered less likely. Correlate with clinical findings and urinalysis. 2. Urothelial thickening is also seen in the right ureter. 3. Nonspecific free fluid in the cul-de-sac is likely within physiologic limits. 4. Splenomegaly. 5. Additional findings as above. Hospital Course (1) Pyelonephritis: Possible passed kidney stone Patient is 36-year-old female with PMH anxiety, depression, migraine presented to ER with complaint of dysuria, urinary frequency x 4 days. 3 days ago with suprapubic pain, left back and left flank pain, fever, chills. 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 Outpatient 09/28/2021 urine culture +E. coli, resistant to ampicillin, cefazolin, ceftriaxone, Cipro In ER patient afebrile, initial P: 108 down to 98, BP 94/60, 97% on room air. WBC: 13.7, lactate WNL. UA. Consistent with UTI CT ABD/PELVIS: There is urothelial thickening involving the left renal pelvis and the left ureter with associated left-sided perinephric stranding and fluid. No renal calculi are identified. Given the history of fever this likely represents ascending urinary tract infection/left-sided pyelonephritis. The sequelae of a recently passed kidney stone could appear similar but is considered less likely. Urothelial thickening is also seen in the right ureter. Repeat urine culture positive for E. coli Resistant to ampicillin, ceftriaxone, intermediate for Cipro. Sensitive to cefepime, Bactrim. Blood cultures NGTD In ER given Rocephin, Toradol, 2L NSS Started cefepime on admission secondary to outpatient urine culture results showing resistant to multiple agents, was sensitive to cefepime IVF Toradol as needed monitor CBC, BMP Continue cefepime while inpt DC on Bactrim for total of 14 days of Abx treatment (2) Hyponatremia: Na: 130 on admission Monitor, now improved Na 138 (3) Migraine: No current migraine Continue home meds (4) Anxiety: Continue bupropion Anemia Hgb 9.9 -appears chronic -pt reports she is supposed to be on oral iron but she gets nausea from it -counselled on "gentle iron" supplement and foods rich in iron -no bleeding at this time - follow up w/ PCP Total Time Total Time Spent Total Time Spent (In Minutes): 40 Discharge Plan Discharge Items Patient Disposition: Home - Self-Care Reason For Visit: PYELONEPHRITIS Discharge Diagnosis: Pyelonephritis Activity: Per Instructions section Non-emergency contact: Primary Care Provider Call non-emergency contact if: you have any medication questions and your symptoms worsen Follow-up/Referrals: Addis Palumbo MD [Primary Care Provider] - (Date & Time 10/06/2021 11:00 AM Provider Addis Renner MD Department Family Medicine [facility] ) Diet: Regular Addtl Attending Provider Instructions: Follow-up with your primary care doctor, the appointment was scheduled for you for October 06. Finish antibiotic treatment with Bactrim, as prescribed. Make sure to stay well-hydrated. Pending Studies at Discharge: No Stand-Alone Forms: My [facility], Smoking Cessation Medications and DC Order Prescriptions: New sulfamethoxazole-trimethoprim [Bactrim DS] 800-160 mg tablet 1 tab PO BID 12 Days Qty: 24 0RF Continued sumatriptan succinate 25 mg tablet 25 mg PO Q2H PRN (Reason: Migraine Headache) norethindrone (contraceptive) 0.35 mg tablet 0.35 mg PO DAILY bupropion HCl 150 mg tablet extended release 24 hr 150 mg PO DAILY topiramate 50 mg tablet 50 mg PO DAILY Discharge Orders: Discharge Order (Routine); Ordered 10/03/21 Ordered By: Jarrell Santos Admission Data Admit Date/Time: 10/02/21 07:33 Attending Provider: Jarrell Santos Admit Provider: Jenifer Linder Primary Care Provider: Addis Palumbo Other Providers: Jenifer Linder
== END 2021-10-03 14:18 | disposition home or self-care (01) | DRG 690 ==
LOC: EDINP 09:38 → ED 09:38 → SUATTDRO 12:13 → EDINP 16:43 → 3N 10-01 13:51